=== PATIENT | female | born 1995 | race Native Hawaiian/Other Pacific Islander ===

== ENCOUNTER 2018-05-17 08:37 | Emergency (ER) | payer OTHER ==
[2018-05-17 09:09] VITALS: BP 132/93; PULSE 106; RESP 18; TEMP 98.5; O2SAT 100
--- NOTE | 2018-05-17 09:24 | C.PDOC ---
History Of Present Illness 23 yo female come in for evaluation of pain on urination, urinary frequency, lower abdominal pain gradually developed for past few hours. Pt denies fever, chills, headache, dizziness, sore throat, abd. pain, N/V, back pain, vaginal irritation or discharge. At present time, pt appears anxious, in pain. Time Seen by Provider: 05/17/18 08:43 Chief Complaint (Nursing): Female Genitourinary History Per: Patient Past Medical History Reviewed: Historical Data, Nursing Documentation, Vital Signs Vital Signs: Last Vital Signs Temp 98.5 F 05/17/18 09:05 Pulse 106 H 05/17/18 09:05 Resp 18 05/17/18 09:05 BP 132/93 H 05/17/18 09:05 Pulse Ox 100 05/17/18 09:05 - Medical History PMH: No Chronic Diseases Family History: States: No Known Family Hx - Social History Hx Tobacco Use: No Hx Alcohol Use: Yes Hx Substance Use: No - Immunization History Hx Tetanus Toxoid Vaccination: No Hx Influenza Vaccination: No Hx Pneumococcal Vaccination: No Review Of Systems Except As Marked, All Systems Reviewed And Found Negative. Constitutional: Negative for: Fever, Chills ENT: Negative for: Throat Pain Cardiovascular: Negative for: Chest Pain, Palpitations Respiratory: Negative for: Cough, Shortness of Breath, Wheezing Gastrointestinal: Positive for: Abdominal Pain. Negative for: Nausea, Vomiting, Diarrhea Genitourinary: Positive for: Dysuria, Frequency, Hematuria. Negative for: Incontinence, Vaginal Discharge, Vaginal Bleeding Musculoskeletal: Negative for: Back Pain Skin: Negative for: Rash Neurological: Negative for: Altered Mental Status, Headache, Dizziness Physical Exam - Physical Exam Appears: Well, Non-toxic, No Acute Distress Skin: Normal Color, Warm, Dry, No Rash Head: Normacephalic Eye(s): bilateral: PERRL Nose: No Flaring, No Discharge Throat: No Erythema, No Drooling Neck: Trachea Midline, Supple Cardiovascular: Rhythm Regular Respiratory: No Decreased Breath Sounds, No Accessory Muscle Use, No Stridor, No Wheezing Gastrointestinal/Abdominal: Soft, Tenderness (mod suprapubic tenderness), No Distention, No Guarding Back: No CVA Tenderness Extremity: Normal ROM, No Deformity, No Swelling Neurological/Psych: Oriented x3, Normal Speech ED Course And Treatment - Laboratory Results Urine POC: Negative O2 Sat by Pulse Oximetry: 100 Pulse Ox Interpretation: Normal Progress Note: On re-eval, pt is afebrile, hemodynamicay stable. Non-toxic, tolerate PO well in ED. Neck: SUpple. ENT: No acute findings. Abd: Benign, (- ) guarding, (-) rebound, (-) localized tenderness. back: (-) CVA tenderness. Preg (-). UA c/w UTI. UCx- pending. Pt started empirically on Macrobid, advised return to ED if no improvement.,. ref. to F/U with PMD in 2-3 days for re-eval. Disposition Counseled Patient/Family Regarding: Studies Performed, Diagnosis, Need For Followup, Rx Given - Disposition Referrals: [facility] [Outside] Disposition: HOME/ ROUTINE Disposition Time: 10:00 Condition: STABLE Additional Instructions: Encourage fluids Take medication as prescribed Follow up with PMD in 2-3 days for re-evaluation as need Return to ED at any time if any worsening or new changes. Prescriptions: Cranberry 500 mg PO BID #30 capsule Nitrofurantoin Macrocrystals [Macrobid] 1 cap PO BID #14 cap Phenazopyridine [Phenazopyridine HCl] 200 mg PO Q12 #6 tab Instructions: Urinary Tract Infections in Adults Forms: [facility] (Dive[place]) - Clinical Impression Clinical Impression: UTI (urinary tract infection)
[2018-05-17 09:34] LABS: HCG,QUALITATIVE URINE NEGATIVE (NEGATIVE)
[2018-05-17 09:42] LABS: URINE BACTERIA RARE (<OCC); URINE BILIRUBIN NEGATIVE (NEGATIVE); URINE BLOOD 3+ (NEGATIVE); URINE CLARITY Hazy (Clear); URINE COLOR Straw (YELLOW); URINE GLUCOSE (UA) NORMAL (Normal); URINE LEUKOCYTE ESTERASE 3+ Leu/uL (Negative); URINE PROTEIN 2+ mg/dL (NEGATIVE); URINE UROBILINOGEN NORMAL mg/dL (0.2-1.0)
== END 2018-05-17 10:37 | disposition home or self-care (01) ==
LOC: C.ER 08:37
DX: N39.0 Urinary tract infection, site not specified (principal)